=== PATIENT | male | born 1975 | race Caucasian/White ===

== ENCOUNTER → 2017-09-02 | Outpatient (CLI) | payer OTHER | LOC: RAH 12:49 | PROVIDERS: ATTEND Internal Medicine Cardiovascular Disease | DX: Z13.6 Encounter for screening for cardiovascular disorders (principal) | CPT/HCPCS: 75571 ==

== ENCOUNTER 2024-07-03 02:09 | Emergency (ER) | payer OTHER ==
[~2024-07-03] VITALS: Ht 182.9 cm; Wt 163.3 kg
[~2024-07-03 02:09] MED LIST: CEPH500B PO; NAPR-1505 PO; TAMS-1 PO
[2024-07-03 03:03] LABS: BASOPHILS # (AUTO) 0.04 K/uL (0.00-0.20); BASOPHILS % (AUTO) 0.3 % (0.0-5.0); EOSINOPHILS # (AUTO) 0.07 K/uL (0.00-0.70); EOSINOPHILS % (AUTO) 0.6 % (0.0-8.0); HEMATOCRIT 50.5 % (42-54); IMMATURE GRANULOCYTE ABSOLUTE 0.07 K/uL (0-1); LYMPHOCYTES # (AUTO) 1.1 K/uL (1.0-4.8); LYMPHOCYTES % (AUTO) 9.3 % (21.0-51.0); MEAN CORPUSCULAR HEMOGLOBIN 27.8 pg (27.0-33.0); MEAN CORPUSCULAR HGB CONC 32.5 g/dL (32.0-36.0); MEAN CORPUSCULAR VOLUME 85.6 fL (79-99); MONOCYTES # (AUTO) 0.8 K/uL (0.1-1.0); MONOCYTES % (AUTO) 7.1 % (3.0-13.0); NEUTROPHILS # (AUTO) 9.6 K/uL (1.8-7.7); NEUTROPHILS % (AUTO) 82.1 % (40.0-77.0); PLATELET COUNT (AUTO) 146 K/uL (130-400); RED CELL DISTRIBUTION WIDTH 14.8 % (11.0-15.5); WHITE BLOOD COUNT (AUTO) 11.7 K/uL (4.8-10.8)
[2024-07-03] MEDS: ondanSETRON 4MG INJ IVP ONE (03:04)
[2024-07-03] MEDS: MAG/ALUM/SIMETH 30 ML UDCUP PO ONE (03:04)
[2024-07-03] MEDS: LIDOCAINE HCL 2% VISCOUS 15 ML UDCUP PO ONE (03:04)
[2024-07-03] MEDS: DICYCLOMINE HCL 10 MG/5 ML ML PO ONE (03:04)
[2024-07-03] MEDS: LACTATED RINGERS 1000ML 1,000 ML IV ONE (03:05)
[2024-07-03] MEDS: hydroMORPHone 1 MG INJ IVP ONE ×2 (03:05→05:23)
[2024-07-03] MEDS ORDERED: IOHEXOL-350 75 ML VIAL IV ONE (03:07)
[2024-07-03 03:13] LABS: CREATININE 1.3 mg/dL (0.5-1.3); POTASSIUM 3.8 mmol/L (3.5-5.1)
[2024-07-03 03:17] LABS: ALBUMIN 3.6 g/dL (3.5-5.0); BILIRUBIN,TOTAL 0.5 mg/dL (0.2-1.0)
[2024-07-03 03:42] LABS: WBC MORPHOLOGY CONSISTENT W/DIFF
[2024-07-03 05:05] LABS: APPEARANCE,URINE CLEAR (CLEAR); BILIRUBIN,URINE NEGATIVE (NEGATIVE); COLOR,URINE LIGHT-YELLOW (YELLOW); GLUCOSE, URINE (UA) NEGATIVE (NEGATIVE); KETONES,URINE NEGATIVE (NEGATIVE); LEUKOCYTE ESTERASE ,URINE NEGATIVE Leu/uL (NEGATIVE); NITRATE,URINE NEGATIVE (NEGATIVE); PH,URINE 5.5 (5.0-8.0); PROTEIN,URINE 20 mg/dL (NEGATIVE); UROBILINOGEN,URINE 0.2 mg/dL (0.2-1.0)
[2024-07-03 05:09] LABS: ADD UA MICROSCOPIC YES
[2024-07-03] MEDS: tamSULOsin HCL 0.4 MG CAP.ER.24H PO ONE (05:23)
[2024-07-03] MEDS ORDERED: LOSA25TA41 PO (06:39)
[2024-07-03] MEDS ORDERED: ANAS1TAB49 PO (06:39)
[2024-07-03] MEDS ORDERED: METO-391 PO (06:39)
[2024-07-03] MEDS ORDERED: ATOR20TA65 PO (06:39)
[2024-07-03] MEDS ORDERED: TRAM50TA4 PO (06:45)
[2024-07-03] MEDS ORDERED: TAMS-1 PO (06:45)
[2024-07-03] MEDS ORDERED: NAPR-1505 PO (06:45)
--- NOTE | 2024-07-03 06:47 | ERN ---
General Chief Complaint: Flank Pain Stated Complaint: R FLANK PAIN Time Seen by MD: 02:13 History of Present Illness Initial Comments Mr Pascual is a 48-year-old male who comes in today with a chief complaint of abdominal pain. Patient reports that he has a history of kidney stones. Patient reports that this pain is similar to his kidney stone. Patient reports he previously had a kidney stone last month in which she had imaging. Patient reports that the pain is radiates to his groin. He states the pain is currently intractable. Allergies: Coded Allergies: sulfamethoxazole (Unverified Allergy, Intermediate, 06/08/24) trimethoprim (Unverified Allergy, Intermediate, 06/08/24) Home Meds Active Scripts Cephalexin Monohydrate (Keflex) 500 Mg Cap, 1 CAP PO BID for 10 Days, #20 CAP 0 Refills Prov:JOSE SAAVEDRA MD 06/08/24 Tamsulosin HCl (Flomax) 0.4 Mg Cap.er.24h, 1 CAP PO DAILY for 7 Days, #7 CAP 0 Refills Prov:JOSE SAAVEDRA MD 06/08/24 Naproxen (Naproxen) 375 Mg Tablet.dr, 375 MG PO BID for 7 Days, #14 TAB Prov:JOSE SAAVEDRA MD 06/08/24 Reported Medications Anastrozole (Arimidex) 1 Mg Tab, 1 MG PO AD, TAB 07/03/24 Metoprolol Succinate (Metoprolol Succinate) 50 Mg Tab.er.24h, 1 TAB PO HS for 30 Days, #30 TAB 0 Refills 07/03/24 Losartan Potassium (Losartan Potassium) 25 Mg Tablet, 1 TAB PO DAILY for 30 Days, #30 TAB 0 Refills 07/03/24 Atorvastatin Calcium (Atorvastatin Calcium) 20 Mg Tablet, 1 TAB PO HS for 30 Days, #30 TAB 0 Refills 07/03/24 Past Medical History Past Medical History: Heart Disease, Hypertension Past Surgical History: None ROS Dictation Constitutional: Negative for fever,chills, and weight loss Eyes: Negative for injury, pain,redness, and discharge ENT: Negative for injury,pain or swelling Cardiovascular: Negative for chest pain, palpitations, and edema Respiratory: Negative for shortness of breath, cough, and wheezing, Abdomen/GI: Positive for abdominal pain Back: Negative for injury and pain : Negative for injury, bleeding and discharge MS/Extremity: Negative for injury and deformity Skin: Negative for rash, and discoloration Neuro: Negative for headache, weakness, numbness, tingling, and seizure Psych: Negative for suicide ideation, homicidal ideation, and hallucinations Physical Exam Physical Exam Dictation General: Middle-aged male who appears to be in pain Head/Face: Normocephalic, atraumatic Eyes: PERRL, EOMI, vision at baseline ENT: oral cavity clear, Neck: Trachea midline, supple Cardiovascular: RRR, normal S1/S2, No MRGs, no JVD Respiratory: CTAB, no respiratory distress, No rales or wheezes Abdomen: Right lower quadrant pain Skin: Warm, dry, normal turgor, no rash Neuro: COAx4, GCS 15, strength 5/5, CN 2-12 intact Psych: Normal behavior, mood, and affect normal Results Laboratory and Microbiology Lab and Micro Result Laboratory Tests Test 07/03/24 02:55 07/03/24 04:50 White Blood Count 11.7 K/uL (4.8-10.8) H Red Blood Count 5.90 MIL/uL (4.50-6.20) Hemoglobin 16.4 g/dL (14.0-18.0) Hematocrit 50.5 % (42-54) Mean Corpuscular Volume 85.6 fL (79-99) Mean Corpuscular Hemoglobin 27.8 pg (27.0-33.0) Mean Corpuscular Hemoglobin Concent 32.5 g/dL (32.0-36.0) Red Cell Distribution Width 14.8 % (11.0-15.5) Platelet Count 146 K/uL (130-400) Mean Platelet Volume 10.0 fL (7.5-10.5) Immature Granulocyte % (Auto) 0.6 % (0-1) Neutrophils (%) (Auto) 82.1 % (40.0-77.0) H Lymphocytes (%) (Auto) 9.3 % (21.0-51.0) L Monocytes (%) (Auto) 7.1 % (3.0-13.0) Eosinophils (%) (Auto) 0.6 % (0.0-8.0) Basophils (%) (Auto) 0.3 % (0.0-5.0) Neutrophils # (Auto) 9.6 K/uL (1.8-7.7) H Lymphocytes # (Auto) 1.1 K/uL (1.0-4.8) Monocytes # (Auto) 0.8 K/uL (0.1-1.0) Eosinophils # (Auto) 0.07 K/uL (0.00-0.70) Basophils # (Auto) 0.04 K/uL (0.00-0.20) Absolute Immature Granulocyte (auto 0.07 K/uL (0-1) Nucleated Red Blood Cells 0.0 % (0.0-0.19) White Cell Morphology Comment CONSISTENT W/DIFF Sodium Level 142 mmol/L (136-145) Potassium Level 3.8 mmol/L (3.5-5.1) Chloride Level 107 mmol/L (101-111) Carbon Dioxide Level 27 mmol/L (21-32) Blood Urea Nitrogen 18 mg/dL (7-18) Creatinine 1.3 mg/dL (0.5-1.3) Glomerular Filtration Rate Calc 67 mL/min (>90) Random Glucose 135 mg/dL (70-105) H Total Calcium 8.7 mg/dL (8.5-10.1) Total Bilirubin 0.5 mg/dL (0.2-1.0) Aspartate Amino Transf (AST/SGOT) 26 U/L (10-37) Alanine Aminotransferase (ALT/SGPT) 50 U/L (12-78) Alkaline Phosphatase 85 U/L (50-136) Total Creatine Kinase 175 U/L (21-232) # Troponin I High Sensitivity 11 ng/L (4-75) Total Protein 7.0 g/dL (6.0-8.3) Albumin 3.6 g/dL (3.5-5.0) Amylase Level 49 U/L (25-115) Lipase 43 U/L (16-77) Urine Color LIGHT-YELLOW (YELLOW) Urine Appearance CLEAR (CLEAR) Urine pH 5.5 (5.0-8.0) Urine Specific [place] 1.030 (1.001-1.031) Urine Protein 20 mg/dL (NEGATIVE) H Urine Glucose (UA) NEGATIVE mg/dL (NEGATIVE) Urine Ketones NEGATIVE mg/dL (NEGATIVE) Urine Occult Blood +- (TRACE) (NEGATIVE) H Urine Nitrate NEGATIVE (NEGATIVE) Urine Bilirubin NEGATIVE mg/dL (NEGATIVE) Urine Urobilinogen 0.2 mg/dL (0.2-1.0) Urine Leukocyte Esterase NEGATIVE Suzy/uL Urine RBC 2-5 /HPF (0-1) H Urine WBC None /HPF (0-1) Urine Bacteria None /HPF (None Seen) MDM Patient was have a CT abdomen and pelvis which does shows right-sided hydronephrosis with a 4-5 mm renal stone. UA is not show any evidence of active infection. Patient this time like to go home pain meds with Flomax MDM: Differential diagnosis: Renal stone Rationale: Tests considered and ordered secondary to shared decision making include: Previous outside records reviewed: Old ER visits. Risk of complication and/or morbidity or mortality of patient management: None Medications-Per medication reconciliation Need for hospitalization: Patient does not meet criteria for hospitalization. Need for emergency major/minor surgery: No There are no social concerns with this patient. Prescription drug management Prescriptions will include symptomatic care Patient's prior external medical records from other ER visits were reviewed by me as indicated. Prior testing and results from previous visits were reviewed. Prior tests were taken into account with medical decision making and resource utilization, independent historian/historians were used to obtain complete medical history. I independently interpreted the test that were performed, results were reviewed by me and considered findings on radiology if ordered. Medical management and examination interpretation discussions were had by me with other qualified healthcare professionals as indicated for the patient's care. ED Course Orders Procedure Category Date Status Time Cbc With Differential LAB 07/03/24 Complete 02:15 Comprehensive LAB 07/03/24 Complete Metabolic Panel 02:15 Amylase LAB 07/03/24 Complete 02:15 Troponin I High LAB 07/03/24 Complete Sensitivity 02:15 Urinalysis Profile LAB 07/03/24 Complete 02:15 Ct Abdomen/Pelvis CT 07/03/24 Taken W/Contrast 02:15 Lactated Ringers PHA 07/03/24 Complete 1000ml (Lactated 02:30 Ondansetron 4mg Inj PHA 07/03/24 Complete (Zofran 4mg Inj) 02:30 Lidocaine Hcl 2% PHA 07/03/24 Complete Viscous (Lidocaine Hcl 02:30 Mag/Alum/Simeth 30ml PHA 07/03/24 Complete (Maalox Plus 30ml) 02:30 Dicyclomine Hcl PHA 07/03/24 Complete (Bentyl 10mg/5ml 02:30 Creatine Kinase, Total LAB 07/03/24 Complete 02:15 Lipase LAB 07/03/24 Complete 02:15 Hydromorphone 1 Mg PHA 07/03/24 Complete Inj (Dilaudid 1mg Inj 03:00 Iohexol (Omnipaque) PHA 07/03/24 Complete 03:07 Hydromorphone 1 Mg PHA 07/03/24 Complete Inj (Dilaudid 1mg Inj 05:30 Tamsulosin Hcl PHA 07/03/24 Complete (Flomax) 05:30 Current Medications Medications (Trade) Dose Ordered Sig/Toño Route PRN Reason Start Time Stop Time Status Last Admin Dose Admin Al Hydroxide/Mg Hydroxide (MAALox PLUS 30ML) 30 ml ONCE ONCE PO 07/03/24 02:30 07/03/24 02:31 DC 07/03/24 03:04 Dicyclomine HCl (Bentyl 10mg/5ml Syrup) 10 mg ONCE ONCE PO 07/03/24 02:30 07/03/24 02:31 DC 07/03/24 03:04 Hydromorphone HCl (DiLAUDid 1MG INJ) 1 mg ONCE ONCE IVP 07/03/24 03:00 07/03/24 03:01 DC 07/03/24 03:05 Hydromorphone HCl (DiLAUDid 1MG INJ) 1 mg ONCE ONCE IVP 07/03/24 05:30 07/03/24 05:31 DC 07/03/24 05:23 Iohexol (Omnipaque) 75 ml STK-MED ONCE IV 07/03/24 03:07 07/03/24 03:11 DC Lactated Ringer's 1,000 ml @ 0 mls/hr ONCE ONCE IV 07/03/24 02:30 07/03/24 02:31 DC 07/03/24 03:05 Lidocaine HCl (Lidocaine HCl 2% Viscous) 10 ml ONCE ONCE PO 07/03/24 02:30 07/03/24 02:31 DC 07/03/24 03:04 Ondansetron HCl (zoFRAN 4MG INJ) 4 mg ONCE ONCE IVP 07/03/24 02:30 07/03/24 02:31 DC 07/03/24 03:04 Tamsulosin HCl (FloMAX) 0.4 mg ONCE ONCE PO 07/03/24 05:30 07/03/24 05:31 DC 07/03/24 05:23 Vital Signs Date Time Temp Pulse Resp B/P (MAP) Pulse Ox O2 Delivery O2 Flow Rate FiO2 07/03/24 06:27 78 20 167/109 94 Room Air* 0 07/03/24 04:30 85 20 146/80 92 Room Air* 0 07/03/24 02:50 98.2 89 24 151/69 94 Room Air* 0 07/03/24 02:11 98.1 91 18 163/92 98 Room Air 0 DX & DISP Disposition: Discharge Departure Impression: Primary Impression: Ureteral stone Condition: Stable Scripts Naproxen (Naproxen) 375 Mg Tablet. 375 MG PO [id number] for 5 Days, #10 TAB Prov: KIANA RENTERIA MD 07/03/24 Tramadol Hcl (Tramadol HCl) 50 Mg Tablet 50 MG PO Q6H, #28 TAB Prov: KIANA RENTERIA MD 07/03/24 Tamsulosin HCl (Flomax) 0.4 Mg Cap.er.24h 0.4 MG PO DAILY for 30 Days, #3 CAPSULE.DR Prov: KIANA RENTERIA MD 07/03/24 Additional Instructions: Please follow up with your primary care physician in the next 1-7 days for continuance of care. Please take your medications as prescribed. Please drink plenty of fluid. Average at least 1-2 L a day Referrals: SOHEILA ATKINS MD (PCP) KIANA RENTERIA MD Jul 03, 2024 06:47
[2024-07-03 07:01] VITALS: BP 157/92; PULSE 72; RESP 20; TEMP 98.3; O2SAT 98
--- NOTE | 2024-07-03 08:22 | HMCIMG ---
CT ABDOMEN WITH CONTRAST. CT PELVIS WITH CONTRAST INDICATION: Abdominal pain; No relevant information related to this study was provided in patient's history by the ordering service. TECHNIQUE: Routine transaxial images using 5 mm slice thickness were obtained after the intravenous infusion of 100 mL of Omnipaque 350 without adverse effects. Oral contrast was not administered. Rectal contrast was not administered. Coronal and sagittal reformatted images acquired for interpretation. CT was performed with one or more of the following dose reduction techniques: Automated exposure control, adjustment of the mA and/or kV according to patient size, or use of iterative reconstruction technique. COMPARISON: None FINDINGS: ABDOMEN: Heart size is normal. Visible lung bases are clear. The liver is enlarged and smooth in contour without lesions or biliary duct dilation. Diffuse low attenuation of the liver parenchyma suggests fatty change. The spleen is normal in size without lesions. The gallbladder appears normal. The pancreas appears normal without pancreatic duct dilation. The adrenal glands appear normal. 4 mm mm calculus within the far distal right ureter contributes to mild right hydroureteronephrosis. Cortical nephrograms are symmetric and normal in appearance bilaterally. No evidence for intra-abdominal free air or organized fluid collection. No retrocrural, intraabdominal, or retroperitoneal lymphadenopathy identified. No aortic aneurysmal dilation or dissection identified. Small fat-containing nonobstructing umbilical hernia. PELVIS: No evidence for free air or organized pelvic fluid collection. No significant pelvic adenopathy detected. Visualized small and large bowel loops appear unremarkable. Terminal ileum appears normal. The appendix appears normal. Nearly empty urinary bladder. Chronic bilateral L5 spondylolysis contributing to low-grade (2 mm) anterolisthesis of L5 upon S1. IMPRESSION: No relevant information related to this study was provided in patient's history by the ordering service. 1. 4 mm mm calculus within the far distal right ureter contributes to mild right hydroureteronephrosis. 2. Enlarged fatty liver. 3. Small fat-containing nonobstructing umbilical hernia.
== END 2024-07-03 07:03 | disposition home or self-care (01) ==
LOC: EDH 02:09
DX: N13.2 Hydronephrosis with renal and ureteral calculous obstruction (principal); I11.9 Hypertensive heart disease without heart failure; Z79.899 Other long term (current) drug therapy; Z88.1 Allergy status to other antibiotic agents; Z88.2 Allergy status to sulfonamides
CPT/HCPCS: 99285; 74177; 96374; 96361; 96375; 82150; 82550; 84484; 80053; 83690; 85025; 81001; 36415; 96376; J7120; J1171 ×2; J2405 ×2; Q9967